=== PATIENT | male | born 1970 | race Caucasian/White ===

== ENCOUNTER 2022-11-01 14:17 | Outpatient (CLI) | payer OTHER, SELFPAY ==
[2022-11-01 14:47] LABS: Hematocrit 47.4 % (42.0-52.0); Hemoglobin 16.2 g/dL (14.0-18.0); Mean Corpuscular HGB Conc 34.2 g/dl (32-36); Mean Corpuscular Hemoglobin 29.6 pg (26-34); Mean Corpuscular Volume 86.7 fl (80-100); Mean Platelet Volume 10.2 fl (7.4-10.4); Platelet Count Result 222 k/mm3 (150-375); Red Blood Count 5.47 M/mm3 (4.6-6.20); Red Cell Distribution Width 12.6 % (11.5-14.5); White Blood Count 11.9 K/mm3 (4.5-10.0)
[2022-11-01 14:57] LABS: Alanine Aminotransferase 50 U/L (6-50); Albumin Level 3.9 g/dL (3.5-5.1); Alkaline Phosphatase 87 U/L (38-126); Anion Gap 8 mmol/L (8-16); Aspartate Amino Transferase 25 U/L (17-59); Bilirubin,Total 0.6 mg/dL (0.2-1.3); Blood Urea Nitrogen 12 mg/dL (9-20); Carbon Dioxide 26 mmol/L (22-30); Chloride 103 mmol/L (98-107); Estimated Glomerular Filt Rate 58; Glucose 147 mg/dL (65-110); Potassium 4.2 mmol/L (3.4-5.0); Sodium 137 mmol/L (137-145)
[2022-11-01 15:24] LABS: Creatinine Urine 124.1 mg/dL
[2022-11-01 15:39] LABS: Vitamin D 25 Hydroxy 14.8 ng/mL
[2022-11-01 18:15] LABS: Microalbumin Urine Random > 1140.0 mg/L (0-16.7)
== END 2022-11-01 14:18 | disposition home or self-care (01) ==
LOC: ANHLAB 14:19
PROVIDERS: Visit Provider Internal Medicine
DX: E11.69 Type 2 diabetes mellitus with other specified complication (principal); E66.9 Obesity, unspecified; E78.5 Hyperlipidemia, unspecified
CPT/HCPCS: 36415; 80053; 82043; 82306; 84443; 85027

== ENCOUNTER 2023-05-05 15:32 | Outpatient (CLI) | payer OTHER, SELFPAY ==
[2023-05-05 17:01] LABS: Anion Gap 8 mmol/L (8-16); Blood Urea Nitrogen 13 mg/dL (9-20); Calcium 9.6 mg/dL (8.4-10.2); Carbon Dioxide 28 mmol/L (22-30); Chloride 102 mmol/L (98-107); Estimated Glomerular Filt Rate 49; Glucose 93 mg/dL (65-110); HDL Direct 49 mg/dL; Potassium 3.9 mmol/L (3.4-5.0); Sodium 138 mmol/L (137-145)
[2023-05-05 17:12] LABS: LDL Cholesterol Direct 121 mg/dL
[2023-05-05 17:20] LABS: Creatinine Urine 98.9 mg/dL
[2023-05-05 17:26] LABS: Vitamin D 25 Hydroxy 30.1 ng/mL
[2023-05-05 18:17] LABS: MALB Creatinine Ratio 652.8 mg/g (0-30); Microalbumin Urine Random 645.6 mg/L (0-16.7)
== END 2023-05-05 15:33 | disposition home or self-care (01) ==
LOC: ANHWCLAB 15:33
PROVIDERS: Visit Provider Nurse Practitioner Family
DX: E11.69 Type 2 diabetes mellitus with other specified complication (principal); E55.9 Vitamin D deficiency, unspecified; E66.01 Morbid (severe) obesity due to excess calories; E66.9 Obesity, unspecified; E78.5 Hyperlipidemia, unspecified; I10 Essential (primary) hypertension; R80.9 Proteinuria, unspecified
CPT/HCPCS: 36415; 80048; 82043; 82306; 82607; 83718; 83721; 84439; 84443

== ENCOUNTER 2023-07-10 15:58 | Outpatient (CLI) | payer OTHER, SELFPAY ==
--- NOTE | ~2023-07-10 | US_ITS ---
EXAMINATION: US renal BI DATE: 07/10/2023 16:38 INDICATION: Diabetes and hypertension presenting with proteinuria TECHNIQUE: Multiple ultrasound grayscale images of the kidneys were obtained. COMPARISON: None. FINDINGS: The right kidney measures 11.3 x 5.3 x 5.5 cm. The left kidney measures 11.9 x 6.1 x 5.4 cm. The kidn eys demonstrate normal echogenicity. There is no hydronephrosis in either kidney. No stones identifi ed. Diffuse mild bladder wall thickening measuring 5 mm well distended to a calculated bladder volume of 195 mL. IMPRESSION: 1. Normal kidneys without hydronephrosis. 2. Nonspecific diffuse mild bladder wall thickening most typically seen in the setting of chronic out let obstruction or cystitis either acute or chronic. Reviewed, dictated and finalized at location A. IMPRESSION: 1. Normal kidneys without hydronephrosis. 2. Nonspecific diffuse mild bladder wall thickening most typically seen in the setting of chronic outlet obstruction or cystitis either acute or chronic.
[2023-07-10 17:31] LABS: Creatinine Urine 74.2 mg/dL; Total Protein Urine Random 89 mg/dL
[2023-07-10 17:31] LABS: Albumin Level 4.5 g/dL (3.5-5.1); Anion Gap 9 mmol/L (8-16); Blood Urea Nitrogen 18 mg/dL (9-20); Calcium 9.5 mg/dL (8.4-10.2); Carbon Dioxide 26 mmol/L (22-30); Chloride 101 mmol/L (98-107); Estimated Glomerular Filt Rate 49; Glucose 122 mg/dL (65-110); Phosphorus 4.2 mg/dL (2.5-4.5); Sodium 136 mmol/L (137-145)
[2023-07-10 17:42] LABS: Complement C3 135 mg/dL (88-165)
[2023-07-14 14:12] LABS: Albumin 4.3 g/dL (3.8-4.8); Alpha 1 Globulin 0.3 g/dL (0.2-0.3); Alpha 2 Globulin 0.8 g/dL (0.5-0.9); Beta 1 Globulin 0.5 g/dL (0.4-0.6); Gamma Globulin 0.8 g/dL (0.8-1.7); Protein, Total 7.1 g/dL (6.1-8.1)
[2023-07-14 21:30] LABS: Anti Glomerular Basement Memb <1.0 AI (<1.0)
[2023-07-16 22:07] LABS: ANCA Screen Negative (Negative)
[2023-07-16 23:00] LABS: Creatinine, Random Urine 77 mg/dL (20-320); Total Protein/Creatinine Ratio 857 mg/g creat (25-148)
== END 2023-07-10 15:59 | disposition home or self-care (01) ==
PROVIDERS: Visit Provider Internal Medicine Nephrology
DX: E11.9 Type 2 diabetes mellitus without complications (principal); R80.9 Proteinuria, unspecified; I10 Essential (primary) hypertension
CPT/HCPCS: 36415; 76775; 80069; 82570; 83520; 84155; 84156; 84165; 84166; 86036; 86038; 86160; 86225

== ENCOUNTER 2023-11-15 12:53 | Outpatient (CLI) | payer OTHER, SELFPAY ==
[2023-11-15 13:22] LABS: Creatinine Urine 115.4 mg/dL; Total Protein Urine Random 162 mg/dL
[2023-11-15 13:26] LABS: Albumin Level 4.8 g/dL (3.5-5.1); Anion Gap 9 mmol/L (8-16); Blood Urea Nitrogen 15 mg/dL (9-20); Calcium 9.7 mg/dL (8.4-10.2); Carbon Dioxide 27 mmol/L (22-30); Chloride 105 mmol/L (98-107); Estimated Glomerular Filt Rate 53; Glucose 85 mg/dL (65-110); Phosphorus 4.3 mg/dL (2.5-4.5); Potassium 4.1 mmol/L (3.4-5.0); Sodium 141 mmol/L (137-145)
[2023-11-15 13:38] LABS: Parathyroid Intact 99.6 pg/mL (7.5-53.5)
== END 2023-11-15 12:54 | disposition home or self-care (01) ==
PROVIDERS: Visit Provider Internal Medicine Nephrology
DX: E55.9 Vitamin D deficiency, unspecified (principal); E11.22 Type 2 diabetes mellitus with diabetic chronic kidney disease; I12.9 Hypertensive chronic kidney disease with stage 1 through stage 4 chronic kidney disease, or unspecified chronic kidney disease; N18.31 Chronic kidney disease, stage 3a; N25.81 Secondary hyperparathyroidism of renal origin; R80.9 Proteinuria, unspecified
CPT/HCPCS: 36415; 80069; 82306; 82570; 83970; 84156

== ENCOUNTER 2024-03-13 11:29 | Outpatient (CLI) | payer OTHER, SELFPAY ==
[2024-03-13 12:21] LABS: Albumin Level 4.6 g/dL (3.5-5.1); Anion Gap 9 mmol/L (4-12); Blood Urea Nitrogen 16 mg/dL (9-20); Calcium 9.6 mg/dL (8.4-10.2); Carbon Dioxide 27 mmol/L (22-30); Chloride 105 mmol/L (98-107); Estimated Glomerular Filt Rate 43; Glucose 188 mg/dL (65-110); Phosphorus 2.8 mg/dL (2.5-4.5); Sodium 141 mmol/L (137-145)
[2024-03-13 12:37] LABS: Creatinine Urine 79.4 mg/dL; Total Protein Urine Random 45 mg/dL; Ur Ttl Prot Creatinine Ratio 0.57 mg/mg (0-0.20)
== END 2024-03-13 11:30 | disposition home or self-care (01) ==
LOC: ANHLAB 11:31
PROVIDERS: Visit Provider Internal Medicine Nephrology
DX: I12.9 Hypertensive chronic kidney disease with stage 1 through stage 4 chronic kidney disease, or unspecified chronic kidney disease (principal); N18.31 Chronic kidney disease, stage 3a; E11.22 Type 2 diabetes mellitus with diabetic chronic kidney disease; R80.9 Proteinuria, unspecified
CPT/HCPCS: 36415; 80069; 82570; 84156

== ENCOUNTER 2024-05-22 09:02 | Outpatient (CLI) | payer OTHER, SELFPAY ==
[2024-05-22 09:41] LABS: Anion Gap 9 mmol/L (4-12); Blood Urea Nitrogen 18 mg/dL (9-20); Calcium 9.7 mg/dL (8.4-10.2); Carbon Dioxide 27 mmol/L (22-30); Chloride 102 mmol/L (98-107); Cholesterol 111 mg/dL (0-200); Estimated Glomerular Filt Rate 43; Glucose 109 mg/dL (65-110); HDL Direct 46 mg/dL; Potassium 4.5 mmol/L (3.4-5.0); Sodium 138 mmol/L (137-145); Triglycerides 113 mg/dL (<150)
[2024-05-22 09:52] LABS: LDL Cholesterol Direct 46 mg/dL
[2024-05-22 10:13] LABS: Free T4 Free Thyroxine 0.85 ng/mL (0.78-2.19)
[2024-05-29 19:09] LABS: Thyroid Stimulating Immunoglob <89 % baseline (<140)
== END 2024-05-22 09:03 | disposition home or self-care (01) ==
PROVIDERS: Visit Provider Nurse Practitioner Family
DX: E11.9 Type 2 diabetes mellitus without complications (principal); I12.9 Hypertensive chronic kidney disease with stage 1 through stage 4 chronic kidney disease, or unspecified chronic kidney disease; N18.32 Chronic kidney disease, stage 3b; E78.5 Hyperlipidemia, unspecified; E55.9 Vitamin D deficiency, unspecified
CPT/HCPCS: 36415; 80048; 80061; 82607; 84439; 84445

== ENCOUNTER 2024-06-26 08:51 | Outpatient (CLI) | payer OTHER, SELFPAY ==
[2024-06-26 09:55] LABS: Total Protein Urine Random 40 mg/dL
[2024-06-26 09:56] LABS: Albumin Level 4.6 g/dL (3.5-5.1); Anion Gap 12 mmol/L (4-12); Blood Urea Nitrogen 16 mg/dL (9-20); Calcium 9.6 mg/dL (8.4-10.2); Carbon Dioxide 26 mmol/L (22-30); Chloride 100 mmol/L (98-107); Estimated Glomerular Filt Rate 46; Glucose 253 mg/dL (65-110); Phosphorus 3.1 mg/dL (2.5-4.5); Potassium 4.1 mmol/L (3.4-5.0); Sodium 138 mmol/L (137-145)
[2024-06-26 10:12] LABS: Parathyroid Intact 64.6 pg/mL (14.5-75.2)
[2024-06-26 10:35] LABS: Vitamin D 25 Hydroxy 59.3 ng/mL
== END 2024-06-26 08:52 | disposition home or self-care (01) ==
LOC: ANHLAB 08:52
PROVIDERS: Visit Provider Internal Medicine Nephrology
DX: I12.9 Hypertensive chronic kidney disease with stage 1 through stage 4 chronic kidney disease, or unspecified chronic kidney disease (principal); E11.22 Type 2 diabetes mellitus with diabetic chronic kidney disease; N18.32 Chronic kidney disease, stage 3b; E55.9 Vitamin D deficiency, unspecified; R80.9 Proteinuria, unspecified; Y36 Operations of war
CPT/HCPCS: 36415; 80069; 82306; 82570; 83970; 84156

== ENCOUNTER 2024-11-13 09:12 | Outpatient (CLI) | payer OTHER, SELFPAY ==
[2024-11-13 09:43] LABS: Alanine Aminotransferase 27 U/L (6-50); Albumin Level 4.5 g/dL (3.5-5.1); Alkaline Phosphatase 66 U/L (38-126); Anion Gap 11 mmol/L (4-12); Aspartate Amino Transferase 20 U/L (17-59); Bilirubin,Total 0.7 mg/dL (0.2-1.3); Blood Urea Nitrogen 19 mg/dL (9-20); Calcium 9.6 mg/dL (8.4-10.2); Carbon Dioxide 24 mmol/L (22-30); Chloride 106 mmol/L (98-107); Cholesterol 99 mg/dL (0-200); Estimated Glomerular Filt Rate 51; Glucose 100 mg/dL (65-110); HDL Direct 50 mg/dL; Phosphorus 3.9 mg/dL (2.5-4.5); Potassium 4.7 mmol/L (3.4-5.0); Sodium 141 mmol/L (137-145); Triglycerides 80 mg/dL (<150)
[2024-11-13 09:53] LABS: LDL Cholesterol Direct 37 mg/dL
[2024-11-13 09:59] LABS: Creatinine Urine 141.5 mg/dL
[2024-11-13 10:15] LABS: Free T4 Free Thyroxine 1.11 ng/dL (0.78-2.19); Vitamin D 25 Hydroxy 44.8 ng/mL
[2024-11-13 10:29] LABS: MALB Creatinine Ratio 309.3 mg/g (0-30); Microalbumin Urine Random 437.6 mg/L (0-16.7)
[2024-11-13 10:30] LABS: Creatinine Urine 143.1 mg/dL; Total Protein Urine Random 102 mg/dL; Ur Ttl Prot Creatinine Ratio 0.71 mg/mg (0-0.20)
[2024-11-13 10:32] LABS: Vitamin B12 > 1000.0 pg/mL (239-931)
== END 2024-11-13 09:13 | disposition home or self-care (01) ==
PROVIDERS: Referring Provider Internal Medicine Nephrology; Visit Provider Nurse Practitioner Family
DX: E11.69 Type 2 diabetes mellitus with other specified complication (principal); E66.9 Obesity, unspecified; E78.5 Hyperlipidemia, unspecified; E66.01 Morbid (severe) obesity due to excess calories; E55.9 Vitamin D deficiency, unspecified; I12.9 Hypertensive chronic kidney disease with stage 1 through stage 4 chronic kidney disease, or unspecified chronic kidney disease; E11.22 Type 2 diabetes mellitus with diabetic chronic kidney disease; N18.32 Chronic kidney disease, stage 3b; R80.8 Other proteinuria
CPT/HCPCS: 36415; 80053; 80061; 82043; 82306; 82570; 82607; 84100; 84156; 84439; 84443

== ENCOUNTER 2025-04-09 10:18 | Outpatient (CLI) | payer OTHER, SELFPAY ==
--- OUTSIDE RECORDS SUMMARY | 2025-04-09 10:22 | XMS_ITS | Encounter Summary ---
Author Organization [facility] Address [address] [place] [address] Care Team Providers Care Assistant Dean Name Role Phone NeshaJoycelyn RADIOCHEMICAL TECHNICIAN Primary Care Provider [phone] Chani Sky PA-C Primary Care Provider + [phone] [facility] Primary Care Provider [phone] Tommy Lott DO Primary Care Provider Marybel Crawford [employer] PUMP OPERATOR Primary Care Provider [phone] Klaudia Menjivar [facility] Primary Care Provider Unav Judy Villafuerte [facility] Primary Care Provid er Encounter Details Date Type Department Care Team (Late st Contact Info) Description 10/20/2013 Abstract [facility] CONVERSION [address] [place] [address] , Generic ConversionMD Social History Tobacco Use Types Packs/Day Years Used Date Smoking Tobacco: Never Assessed Sex and Gender Information Value Date Recorded Sex Assigned at Not on file Legal Sex Male 7:58 PM CDT Gender Identity Not on file Sexual Orientation Not on file documented as of this encounter Plan of Treatment Not on file documented as of this encounter Visit Diagnoses Not on filedocumented in this encounter Additional Health Concerns Infection Onset Date Last Indicated Resolved Time COVID-19 Rule Out 01/22/2023 01/22/2023 01/22/2023 4:50 PM CDT COVID-19 Confirmed 01/22/2023 01/22/2023 12:32 AM CDT documented as of this encounter Care Teams Assistant Dean Relationship Specialty Start Date End Date Joycelyn Jeffries FNP [address] [place] [address] PCP - General NURSE PRACTITIONER 05/06/18 10/05/18 Chani Sky PA-C [address] [place] [address] PCP - General PHYSICIAN LINOTYPIST 10/06/18 11/04/18 Joycelyn Jeffries FNP [address] [place] [address] PCP - General NURSE PRACTITIONER 11/24/18 07/15/21 Tommy Lott DO [address] [place] [address] PCP - General FAMILY PRACTICE 07/16/21 10/08/21 Marybel Crawford, [employer] PUMP OPERATOR [address] [facility] [address] PCP - General NURSE PRACTITIONER 10/09/21 09/08/22 Klaudia Menjivar, RADIOCHEMICAL TECHNICIAN- [address] [address] PCP - General Nurse Practitioner Family 09/09/22 Judy Walker, [facility] [place]-BC [address] [facility] [address] PCP - General Nurse Practitioner Family 01/17/23 documented as of this encounter
--- OUTSIDE RECORDS SUMMARY | 2025-04-09 10:22 | XMS_ITS | Encounter Summary ---
Author Organization [facility] Address [address] [place] [address] Care Team Providers Care Supervisor Plating And Point Assembly Name Role Phone Nesha, Joycelyn WATCH AND CLOCK REPAIRER Primary Care Provider [phone] Chani Sky PA-C Primary Care Provider + [phone] Joycelyn Jeffries [facility] Primary Care Provider [phone] Tomym Lott DO Primary Care Provider Marybel Crawford PARALLEL COMPUTING SOFTWARE ENGINEER Primary Care Provider [phone] Klaudia Menjivar [facility] Primary Care Provider Unav Judy Villafuerte [facility] Primary Care Provid er Encounter Details Date Type Department Care Team (Late st Contact Info) Description 05/10/2002 Abstract [facility] Conversion , Generic Conversion, Social History Tobacco Use Types Packs/Day Years [...] 4:50 PM CDT COVID-19 Confirmed 01/22/2023 01/22/2023 05/14/202 3 12:32 AM CDT documented as of this encounter Care Teams Supervisor Plating And Point Assembly Relationship Specialty Start Date End Date Joycelyn Jeffries FNP [address] [place] [address] PCP - General NURSE PRACTITIONER 05/06/18 10/05/18 Chani Sky PA-C [address] [facility] [address] [place] [address] PCP - General PHYSICIAN CAFE AIDE 10/06/18 11/04/18 Joycelyn Jeffries FNP [address] [place] [address] PCP - General NURSE PRACTITIONER 11/24/18 07/15/21 Tommy Lott DO [address] [facility] [address] [place] [address] PCP - General FAMILY PRACTICE 07/16/21 10/08/21 Marybel Crawford, PAR[employer] COMPUTING SOFTWARE ENGINEER [address] [facility] [place] [address] PCP - General NURSE PRACTITIONER 10/09/21 09/08/22 Klaudia Menjivar, [facility]- [address] [facility] [place] [address] PCP - General Nurse Practitioner Family 09/09/22 Judy Walker, [facility]- [address] [place] [address] PCP - General Nurse Practitioner Family 01/17/23 documented as of this encounter
--- OUTSIDE RECORDS SUMMARY | 2025-04-09 10:22 | XMS_ITS | Clinical Summary ---
Author Organization [facility] Address [address] [place] [address] Care Team Providers Care Construction Carpenters Helper Name Role Phone [facility] Primary Care Provid er Allergies No known active allergies Medications Blood Glucose Monitoring Suppl (StorspeedACE BLOOD GLUCOSE MONITOR) DeviceIndications :Diabetes mellitus type 2 in obese ([facility] HHS/HCC) 1 kit by Does not apply route daily. 1 Device 11/09/19 19 Active Glucose Blood (EMBRACE BLOOD GLUCOSE TEST) test stripIndications: Diabetes mellitus type 2 in obese ([facility] HHS/HCC) 1 each by Other route as needed. Use as instructed 50 each 3 11/09/19 19 Active Lancets MiscIndications:D iabetes mellitus type 2 in obese ([facility] HHS/HCC) 1 each by Does not apply route daily. 100 Container 1 11/09/19 19 Active glipiZIDE XL (GLUCOTROL XL) 10 MG 24 hr tabletIndications :Diabetes mellitus type 2 in obese ([facility] HHS/HCC) TAKE 1 TABLET (10 MG TOTAL) BY MOUTH DAILY WITH BREAKFAST. 15 tablet 10/24/19 23 Active pravastatin (PRAVACHOL) 20 MG tabletIndications :Hyperlipidemia, unspecified hyperlipidemia type TAKE 1 TABLET (20 MG TOTAL) BY MOUTH NIGHTLY AT BEDTIME. 15 tablet 10/24/19 23 Active losartan (COZAAR) 100 MG tabletIndications :Essential hypertension TAKE 1 TABLET (100 MG TOTAL) BY MOUTH DAILY. 15 tablet 10/24/19 23 Active allopurinol (ZYLOPRIM) 300 MG tabletIndications :Chronic gout without tophus, unspecified cause, unspecified site TAKE 1 TABLET (300 MG TOTAL) BY MOUTH DAILY. 15 tablet 10/24/19 Active metFORMIN (GLUCOPHAGE) 1000 MG tabletIndications :Diabetes mellitus type 2 in obese ([facility]) TAKE 1 TABLET BY MOUTH 2 TIMES DAILY WITH MEALS. APPOINTMENT NEEDED FOR REFILLS 30 tablet 10/24/19 Active JARDIANCE 10 MG tablet Take 1 tablet (10 mg total) by mouth daily. 12/12/19 Active vitamin D2, ergocalciferol, (DRISDOL) 1.25 mg capsule Take 1 capsule (1.25 mg total) by mouth once a week. 12/20/19 Active LANTUS SOLOSTAR 100 UNIT/ML injection (PEN) INJECT 15 UNITS SUBCUTANEOUSLY IN THE MORNING 12/30/19 Active pioglitazone (ACTOS) 15 MG tablet Take 1 tablet (15 mg total) by mouth daily. 12/30/19 Active Active Problems Problem Noted Date Diagnosed Date Diabetes mellitus type 2 in obese ([facility]/ CC) 04/08/2017 Sleep apnea 11/07/2014 Overview (11/05/2018): cpap using now Morbid obesity due to excess calories 12/20/2013 Gout 09/21/2013 Hyperlipidemia 09/21/2013 Essential hypertension 09/21/2013 Proteinuria Resolved Problems Problem Noted Date Diagnosed Date Resolved Date Other depressive disorder 04/08/2017 Acute pancreatitis ([facility]) 11/14/2014 11/09/2018 Calculus of kidney 11/07/2014 9 Immunizations Immunization Administration Dates Next Due Dtap (Generic) 06/01/1980,05/24/1977 Dtap/Hep B/Ipv 06/01/1980,05/24/1977 Hepatitis B 04/22/2009,12/08/2008,11/08/2008 Hepatitis B (Generic: Adult) 08/19/2019,02/12/20,12/31/2018 Opv 02/02/1985 Td 02/02/1985 Family History Medical History Relation Comments Colon Cancer Father Heart Disease Father Heart Disease Maternal Grandfather Diabetes Maternal Grandmother Diabetes Mother Diabetes Paternal Grandfather Heart Disease Paternal Grandfather Hypertension Paternal Grandfather Diabetes Paternal Grandmother Heart Disease Paternal Grandmother Stroke Paternal Grandmother Relation Status Comments Father Maternal Grandfather Maternal Grandmother Mother Paternal Grandfather Paternal Grandmother Social History Tobacco Use Types Packs/Day Years Used Date Smoking Tobacco: Former Cigarettes 1 - 1998 Smokeless Tobacco: Current Chew Tobacco Cessation:Ready to Q uit: Yes; Counseling Given: Yes Alcohol Use Standard Drinks/Week Comments Yes 0 (1 standard drink = 0.6 oz pur e alcohol) social, once a month, beer PHQ-2 Answer Date Recorded Patient Health Questionnaire-2 Score 0 01/22/2023 Sex and Gender Information Value Date Recorded Sex Assigned at Not on file Legal Sex Male 7:58 PM CDT Gender Identity Not on file Sexual Orientation Not on file Last Filed Vital Signs Vital Sign Reading Time Taken Comments Blood Pressure 131/79 01/22/2023 4:01 PM CDT Pulse 91 01/22/2023 4:01 PM CDT Temperature 38.8 C (101.8 F) 01/22/2023 4:01 PM CDT Respiratory Rate 20 01/22/2023 4:01 PM CDT Oxygen Saturation 96% 01/22/2023 4:01 PM CDT Inhaled Oxygen Concentration - - Weight 132.6 kg (292 lb 6.4 oz) 01/22/2023 4:01 PM CDT Height 175.3 cm (5' 9) 01/22/2023 4:01 PM CDT Body Mass Index 43.18 01/22/2023 4:01 PM CDT Plan of Treatment Health Maintenance Due Date Last Done Comments Colorectal Cancer Screening Colonoscopy (10 Years) 1971 Kidney Health Evaluation 1971 Annual Physical 1974 DTaP, Tdap and Td Vaccines (4 - Tdap) 02/03/1985 02/02/1985, 06/01/1980, 06/01/1980, Additional history exists Diabetes: Retinopathy Eye Exam 1989 Hepatitis C 1989 Pneumococcal Vaccine: 50+ Years (1 of 2 - PCV) 1990 Lipid Panel 08/19/2020 08/19/2019, 02/11/2014, 07/10/2013, Additional history exists Zoster Vaccines (1 of 2) 2021 Hemoglobin A1C 04/25/2022 10/26/2021, 08/06, 11/07/2014, Additional history exists COVID-19 Vaccine (2023- season) 2024 Hepatitis B Vaccines Completed 08/19/2019, 02/11/2019, 12/31/2018, Additional history exists Meningococcal B Vaccine Aged Out No l onger eligible based on patient's age to complete this topic Meningococcal Vaccine Aged Out No jadon galo eligible based on patient's age to complete this topic RSV Immunizations Under 20 Months Aged Out No longer eligible based on patient's age to complete this topic Procedures Procedure Name Priority Date/Time Associated Diagnosis Comments OUTSIDE LAB (SCAN ORDER) Routine 10/26/2021 LIPID PANEL Routine 08/19/2019 Hyperlipidemia from Last 3 Months or Most Recently Relevant to Health Maintenance Results * OUTSIDE LAB (SCAN) (10/26/2021) HGB A1C 9.5 % HS ONBASE 10/26/2021 us Documents Scanned SCANNING Final Result [facility] ONBASE * LIPID PANEL (08/19/2019) 08/19/2019 us Joycelyn Jeffries SUPERINTENDENT GEOPHYSICAL LABORATORY LABORATORY Edited Result - Final [facility] [address] [place] [address], from Last 3 Months or Most Recently Relevant to Health Maintenance Insurance [employer] Care Teams Construction Carpenters Helper Relationship Specialty Start Date End Date Judy Walker, SUPERINTENDENT [facility]H[employer] LABORATORY- [address] [place] [address] PCP - General Nurse Practitioner Family 01/17/23
[2025-04-09 10:52] LABS: Albumin Level 4.5 g/dL (3.5-5.1); Anion Gap 12 mmol/L (4-12); Blood Urea Nitrogen 26 mg/dL (9-20); Calcium 9.6 mg/dL (8.4-10.2); Carbon Dioxide 23 mmol/L (22-30); Chloride 102 mmol/L (98-107); Estimated Glomerular Filt Rate 44; Glucose 215 mg/dL (65-110); Potassium 4.5 mmol/L (3.4-5.0); Sodium 137 mmol/L (137-145)
[2025-04-09 10:53] LABS: Total Protein Urine Random 27 mg/dL; Ur Ttl Prot Creatinine Ratio 0.41 mg/mg (0-0.20)
[2025-04-09 11:04] LABS: Parathyroid Intact 61.7 pg/mL (14.5-75.2)
== END 2025-04-09 10:19 | disposition home or self-care (01) ==
LOC: ANHLAB 10:20
PROVIDERS: Visit Provider Internal Medicine Nephrology
DX: I12.9 Hypertensive chronic kidney disease with stage 1 through stage 4 chronic kidney disease, or unspecified chronic kidney disease (principal); E11.22 Type 2 diabetes mellitus with diabetic chronic kidney disease; N18.32 Chronic kidney disease, stage 3b; N25.81 Secondary hyperparathyroidism of renal origin; E55.9 Vitamin D deficiency, unspecified
CPT/HCPCS: 36415; 80069; 82306; 82570; 83970; 84156

== ENCOUNTER 2025-08-05 09:20 | Outpatient (CLI) | payer OTHER, SELFPAY ==
[2025-08-05 10:52] LABS: Total Protein Urine Random 39 mg/dL
[2025-08-05 11:06] LABS: Alanine Aminotransferase 19 U/L (6-50); Albumin Level 4.5 g/dL (3.5-5.1); Alkaline Phosphatase 77 U/L (38-126); Anion Gap 8 mmol/L (4-12); Aspartate Amino Transferase 24 U/L (17-59); Bilirubin,Total 0.7 mg/dL (0.2-1.3); Blood Urea Nitrogen 20 mg/dL (9-20); Calcium 9.4 mg/dL (8.4-10.2); Carbon Dioxide 26 mmol/L (22-30); Chloride 105 mmol/L (98-107); Cholesterol 198 mg/dL (0-200); Estimated Glomerular Filt Rate 46; Glucose 122 mg/dL (65-110); HDL Direct 45 mg/dL; Potassium 4.2 mmol/L (3.4-5.0); Sodium 139 mmol/L (137-145); Total Protein 7.3 g/dL (6.3-8.2); Triglycerides 90 mg/dL (<150)
[2025-08-05 11:09] LABS: Ur Ttl Prot Creatinine Ratio 0.40 mg/mg (0-0.20)
[2025-08-05 11:22] LABS: Thyroid Stimulating Hormone Reflex 1.150 uIU/mL (0.465-4.68)
[2025-08-05 11:36] LABS: Prostate Specific Antigen 1.1 ng/mL (< OR = 4.0)
== END 2025-08-05 09:21 | disposition home or self-care (01) ==
PROVIDERS: PCP Nurse Practitioner Family; Visit Provider Internal Medicine Nephrology
DX: Z00.01 Encounter for general adult medical examination with abnormal findings (principal); Z11.59 Encounter for screening for other viral diseases; Z12.5 Encounter for screening for malignant neoplasm of prostate; I12.9 Hypertensive chronic kidney disease with stage 1 through stage 4 chronic kidney disease, or unspecified chronic kidney disease; E11.22 Type 2 diabetes mellitus with diabetic chronic kidney disease; N18.32 Chronic kidney disease, stage 3b; E78.2 Mixed hyperlipidemia; R80.8 Other proteinuria
CPT/HCPCS: 36415; 80053; 80061; 82570; 84100; 84153; 84156; 84443; 86803; G0103